=== PATIENT | female | born 1995 | race Two or more races ===

== ENCOUNTER 2018-10-24 20:41 | Emergency (ER) | payer OTHER ==
--- NOTE | 2018-10-24 21:15 | ER Report ---
History and Physical Time Seen By MD: 21:15 Hx. of Stated Complaint: Pt. states she has had a fever for 2 days, but has not taken her temperature. Temp 99.5 in triage. Pt. reports fatigue, lower back pain, headache. Diagnosed last week with UTI, given Bactrim. Pt. still has burning sensation with urination. HPI/ROS CHIEF COMPLAINT: back/flank pain and dysuria HISTORY OF PRESENT ILLNESS: This is a 22 year old female. She has had ongoing problems with dysuria and back/flank pain. She was treated for a urinary tract infection a week ago, but symptoms have nor resolved. Took Bactrim. Having subjective fevers at home. Taking Ibuprofen. Having chills as well. No diarrhea. No nausea or vomiting, but poor appetite. Allergies: Coded Allergies: No Known Drug Allergies (Unverified , 10/24/18) Home Meds Active Scripts Phenazopyridine Hcl (PHENAZOPYRIDINE HCL) 200 Mg Tablet, 200 MG PO TID PRN for PAIN, #10 TAB 0 Refills Prov:CHIQUITA GONZALEZ MD 10/25/18 Ondansetron 4 Mg Odt (ONDANSETRON 4 MG ODT) 4 Mg Tab.rapdis, 4 MG PO Q6H PRN for NAUSEA/VOMITING, #20 TAB 0 Refills Prov:CHIQUITA GONZALEZ MD 10/25/18 Hydrocodone Bit/Acetaminophen (HYDROCODON-ACETAMINOPHEN 5-325) 1 Each Tablet, 1 EACH PO Q4H PRN for PAIN, #8 TAB 0 Refills Prov:CHIQUITA GONZALEZ MD 10/25/18 Levofloxacin 500 Mg Tab (LEVOFLOXACIN 500 MG TAB) 500 Mg Tablet, 500 MG PO QDAY for 7 Days, #7 TAB 0 Refills Prov:CHIQUITA GONZALEZ MD 10/25/18 Reviewed Nurses Notes: Yes Constitutional Vital Sign - Last 24 Hours 10/24/18 10/24/18 10/24/18 10/24/18 21:01 21:01 21:11 21:16 Temp 99.5 Pulse 101 ??? Resp 16 B/P (MAP) 123/82 (96) 123/82 Pulse Ox 95 95 O2 Delivery Room Air 10/24/18 10/24/18 10/24/18 10/24/18 21:30 21:31 21:46 21:49 Temp 100.3 Pulse 95 99 B/P (MAP) ???/??? (1665) Pulse Ox 97 92 10/24/18 10/24/18 10/24/18 10/24/18 22:01 22:16 22:30 22:31 Pulse 91 ? B/P (MAP) ???/??? (1665) Pulse Ox 94 100 10/24/18 10/24/18 10/24/18 10/24/18 22:46 23:00 23:05 23:06 Pulse ? B/P (MAP) ???/??? (1665) 117/75 (89) 10/24/18 10/24/18 10/24/18 10/24/18 23:20 23:30 23:35 23:50 Pulse 102 93 ??? B/P (MAP) 104/73 (83) Pulse Ox 87 93 10/25/18 10/25/18 00:00 00:05 Pulse 94 B/P (MAP) 116/80 (92) Pulse Ox 97 Physical Exam General Appearance: The patient is alert. No acute distress. Eyes: Pupils are equal, round. Reactive to light. No pallor, injection or icte keri. Extraocular movements are intact. Eyes do hurt with extremes of movement. ENT: Mucous membranes are moist. Normal oral mucosa. Posterior oropharynx is normal. Normal tympanic membranes and canals. Neck: Supple and non tender. Has cervical lymphadenopathy. Respiratory: Lungs are clear to auscultation. Cardiovascular: Regular rate and rhythm. No murmurs, gallops or rubs. Normal capillary refill. Gastrointestinal: Abdomen is soft and non tender. Nondistended. Normal active bowel sounds. Neurological: Alert and oriented x3. No focal neurologic deficits Skin: Warm and dry. Musculoskeletal: Extremities are nontender. No tenderness in palpation of the cervical, thoracic and lumbar spine, but pain in the flank and low back. DIFFERENTIAL DIAGNOSIS: After history and physical exam, differential diagnosis was considered for patient with dysuria and some flank and low back pain. Concerning for ongoing urinary tract infection with treatment failure or possibly kidney stones. She does have a little bit of upper respiration symptoms of fever could also be due to upper respiratory viral syndrome Medical Decision Making Data Points Result Diagram: 10/24/18 1390 10/24/182125 Laboratory Hematology Test 10/24/18 21:18 10/24/18 21:26 10/24/18 21:37 10/24/18 22:47 Urine Color Yellow Urine Clarity Clear Urine pH 5.0 pH (4.8-9.5) Urine Specific [place] 1.027 Urine Protein 30 mg/dL (NEGATIVE) Urine Glucose (UA) Negative mg/dL (NEGATIVE) Urine Ketones 80 mg/dL (NEGATIVE) Urine Blood Moderate (NEGATIVE) Urine Nitrite Negative (NEGATIVE) Urine Bilirubin Negative (NEGATIVE) Urine Urobilinogen Negative mg/dL (0.2-1.9) Urine Leukocyte Esterase Negative (NEGATIVE) Urine RBC 6 /HPF (0-2/HPF) Urine WBC 2 /HPF (0-5/HPF) Urine Squamous Epithelial Cells Moderate /LPF (</=FEW) Urine Bacteria Negative /HPF (NONE-FEW) Urine Mucus Few /HPF (NONE-FEW) Sodium Level 134 mmol/L (137-145) Potassium Level 3.7 mmol/L (3.5-5.0) Chloride Level 106 mmol/L (98-107) Carbon Dioxide Level 19 mmol/L (22-31) Blood Urea Nitrogen 10 mg/dl (7-18) Creatinine 0.80 mg/dl (0.52-1.04) Glomerular Filtration Rate Calc > 60.0 Random Glucose 93 mg/dl (75-110) Calcium Level 9.2 mg/dl (8.4-10.2) Total Bilirubin 0.5 mg/dl (0.2-1.3) Aspartate Amino Transf (AST/SGOT) 35 U/L (0-35) Alanine Aminotransferase (ALT/SGPT) 24 U/L (0-56) Alkaline Phosphatase 48 U/L (0-126) Total Protein 8.9 g/dl (6.3-8.2) Albumin 5.0 g/dl (3.5-5.0) Influenza Virus Type A (PCR) Negative (NEGATIVE) Influenza Virus Type B (PCR) Negative (NEGATIVE) Red Blood Count 4.95 M/uL (4.17-5.56) Mean Corpuscular Volume 82.0 fL (80.0-96.0) Mean Corpuscular Hemoglobin 27.1 pg (26.0-33.0) Mean Corpuscular Hemoglobin Concent 33.0 g/dL (32.0-36.0) Red Cell Distribution Width 13.9 % (11.5-14.5) Mean Platelet Volume 8.5 fL (7.2-11.1) Neutrophils (%) (Auto) 58.5 % (39.4-72.5) Lymphocytes (%) (Auto) 24.3 % (17.6-49.6) Monocytes (%) (Auto) 11.7 % (4.1-12.4) Eosinophils (%) (Auto) 5.2 % (0.4-6.7) Basophils (%) (Auto) 0.3 % (0.3-1.4) Nucleated RBC Relative Count (auto) 0.1 /100WBC Neutrophils # (Auto) 1.0 K/uL (2.0-7.4) Lymphocytes # (Auto) 0.4 K/uL (1.3-3.6) Monocytes # (Auto) 0.2 K/uL (0.3-1.0) Eosinophils # (Auto) 0.1 K/uL (0.0-0.5) Basophils # (Auto) 0.0 K/uL (0.0-0.1) Nucleated RBC Absolute Count (auto) 0.00 K/uL Peripheral Blood Smear Yes Y/N Chemistry Test 10/24/18 21:18 10/24/18 21:26 10/24/18 21:37 10/24/18 22:47 Urine Color Yellow Urine Clarity Clear Urine pH 5.0 pH (4.8-9.5) Urine Specific [place] 1.027 Urine Protein 30 mg/dL (NEGATIVE) Urine Glucose (UA) Negative mg/dL (NEGATIVE) Urine Ketones 80 mg/dL (NEGATIVE) Urine Blood Moderate (NEGATIVE) Urine Nitrite Negative (NEGATIVE) Urine Bilirubin Negative (NEGATIVE) Urine Urobilinogen Negative mg/dL (0.2-1.9) Urine Leukocyte Esterase Negative (NEGATIVE) Urine RBC 6 /HPF (0-2/HPF) Urine WBC 2 /HPF (0-5/HPF) Urine Squamous Epithelial Cells Moderate /LPF (</=FEW) Urine Bacteria Negative /HPF (NONE-FEW) Urine Mucus Few /HPF (NONE-FEW) Glomerular Filtration Rate Calc > 60.0 Calcium Level 9.2 mg/dl (8.4-10.2) Total Bilirubin 0.5 mg/dl (0.2-1.3) Aspartate Amino Transf (AST/SGOT) 35 U/L (0-35) Alanine Aminotransferase (ALT/SGPT) 24 U/L (0-56) Alkaline Phosphatase 48 U/L (0-126) Total Protein 8.9 g/dl (6.3-8.2) Albumin 5.0 g/dl (3.5-5.0) Influenza Virus Type A (PCR) Negative (NEGATIVE) Influenza Virus Type B (PCR) Negative (NEGATIVE) White Blood Count 1.7 k/uL (4.5-11.0) Red Blood Count 4.95 M/uL (4.17-5.56) Hemoglobin 13.4 g/dL (12.0-16.0) Hematocrit 40.6 % (34.0-47.0) Mean Corpuscular Volume 82.0 fL (80.0-96.0) Mean Corpuscular Hemoglobin 27.1 pg (26.0-33.0) Mean Corpuscular Hemoglobin Concent 33.0 g/dL (32.0-36.0) Red Cell Distribution Width 13.9 % (11.5-14.5) Platelet Count 157 K/uL (150-450) Mean Platelet Volume 8.5 fL (7.2-11.1) Neutrophils (%) (Auto) 58.5 % (39.4-72.5) Lymphocytes (%) (Auto) 24.3 % (17.6-49.6) Monocytes (%) (Auto) 11.7 % (4.1-12.4) Eosinophils (%) (Auto) 5.2 % (0.4-6.7) Basophils (%) (Auto) 0.3 % (0.3-1.4) Nucleated RBC Relative Count (auto) 0.1 /100WBC Neutrophils # (Auto) 1.0 K/uL (2.0-7.4) Lymphocytes # (Auto) 0.4 K/uL (1.3-3.6) Monocytes # (Auto) 0.2 K/uL (0.3-1.0) Eosinophils # (Auto) 0.1 K/uL (0.0-0.5) Basophils # (Auto) 0.0 K/uL (0.0-0.1) Nucleated RBC Absolute Count (auto) 0.00 K/uL Peripheral Blood Smear Yes Y/N Urinalysis Test 10/24/18 21:18 Urine Color Yellow Urine Clarity Clear Urine pH 5.0 pH (4.8-9.5) Urine Specific [place] 1.027 Urine Protein 30 mg/dL (NEGATIVE) Urine Glucose (UA) Negative mg/dL (NEGATIVE) Urine Ketones 80 mg/dL (NEGATIVE) Urine Blood Moderate (NEGATIVE) Urine Nitrite Negative (NEGATIVE) Urine Bilirubin Negative (NEGATIVE) Urine Urobilinogen Negative mg/dL (0.2-1.9) Urine Leukocyte Esterase Negative (NEGATIVE) Urine RBC 6 /HPF (0-2/HPF) Urine WBC 2 /HPF (0-5/HPF) Urine Squamous Epithelial Cells Moderate /LPF (</=FEW) Urine Bacteria Negative /HPF (NONE-FEW) Urine Mucus Few /HPF (NONE-FEW) EKG/Imaging Imaging CT of the abdomen and pelvis without contrast: Indication: Flank pain and dysuria. Technique: Helical CT was performed through the abdomen and pelvis without contrast. Multiplanar reconstructions are reviewed. One of the following dose optimization techniques was utilized in the performance of this exam: Automated exposure control; adjustment of the mA and/or kV according to the patient's size; or use of an iterative reconstruction technique. Specific details can be referenced in the facility's radiology CT exam operational policy. Comparison: None available. Lower lung [place]: No parenchymal or pleural abnormality is identified. Liver: A few tiny cysts are incidentally noted. Otherwise normal in size, shape, and density. Gallbladder/biliary tree: The gallbladder is normal in size and homogeneous in density. The bile ducts are not dilated. Pancreas: Normal in size, shape, and density. Spleen: Normal in size, shape, and density. Adrenal glands: Within normal limits. Kidneys/urinary bladder: There are nonobstructing calculi at the lower pole of the right kidney, measuring up to 4 mm in size. The kidneys are otherwise normal in size, shape, and density. There are no signs of ureteral calculus or obstruction. Multiple calcified phleboliths are present in the pelvis. The bladder appears homogeneous and unremarkable. Intestinal structures: Unremarkable, as visualized. There are no signs of obstruction or focal inflammatory changes. The appendix appears normal. Pelvis: The uterus and adnexal structures are unremarkable, as visualized. There are no signs of fluid or inflammation. Aorta and vascular structures: Within normal limits. Ascites or fluid collections: None seen. Skeletal structures: Intact and unremarkable. Impression: There are nonobstructing calculi in the right kidney, measuring up to 4 mm in size. There are no signs of ureteral calculus or obstruction. Report Dictated By: Joseph Gaines MD at 10/24/2018 11:21 PM ED Course/Re-evaluation ED Course Influenza negative. Unable to get an IV placed but labs were obtained. She does have a low white count but her absolute neutrophil count is still okay. She does have signs of urinary tract infection. CT scan noncontrast shows no obstructing stone. She does have some silent stones in the right kidney. Urinalysis shows signs of infection. Culture ordered. Starting Levaquin. Also provided some Pyridium as well as some Lortab for pain. Also some Zofran for nausea. Decision to Disposition Date: Oct 25, 2018 Decision to Disposition Time: 00:02 Depart Departure Latest Vital Signs Vital Signs Date Time Temp Pulse Resp B/P (MAP) Pulse Ox O2 Delivery O2 Flow Rate FiO2 10/25/18 00:05 94 97 10/25/18 00:00 116/80 (92) 10/24/18 21:49 100.3 10/24/18 21:01 16 Room Air Impression: Primary Impression: Urinary tract infection Condition: Improved Disposition: HOME OR SELF-CARE New Scripts Phenazopyridine Hcl (PHENAZOPYRIDINE HCL) 200 Mg Tablet 200 MG PO TID PRN for PAIN, #10 TAB 0 Refills Prov: CHIQUITA GONZALEZ MD 10/25/18 Ondansetron 4 Mg Odt (ONDANSETRON 4 MG ODT) 4 Mg Tab.rapdis 4 MG PO Q6H PRN for NAUSEA/VOMITING, #20 TAB 0 Refills Prov: CHIQUITA GONZALEZ MD 10/25/18 Hydrocodone Bit/Acetaminophen (HYDROCODON-ACETAMINOPHEN 5-325) 1 Each Tablet 1 EACH PO Q4H PRN for PAIN, #8 TAB 0 Refills Prov: CHIQIUTA GONZALEZ MD 10/25/18 Levofloxacin 500 Mg Tab (LEVOFLOXACIN 500 MG TAB) 500 Mg Tablet 500 MG PO QDAY for 7 Days, #7 TAB 0 Refills Prov: CHIQUITA GONZALEZ MD 2/6/19 Patient Instructions: Urinary Tract Infection in Women (ED) Additional Instructions: You have a urinary tract infection. Take the antibiotic Levaquin 500 milligrams once a day for 7 days. For burning with urination, use Pyridium 200 mg every 8 hours as needed. For pain use Lortab 5/325, one every 4 hours as needed for pain. For nausea use Zofran 4 mg, one every 6 hours as needed for nausea and vomiting. Follow-up with primary care in the next week for reevaluation and rechecking your complete blood count. Problem Qualifiers Primary Impression: Urinary tract infection Urinary tract infection type: acute cystitis Hematuria presence: without hematuria Qualified Codes: N30.00 - Acute cystitis without hematuria CHIQUITA GONZALEZ MD Oct 24, 2018 21:15
[2018-10-24 23:00] LABS: PLATELET COUNT, AUTOMATED 157 K/uL (150-450)
--- NOTE | 2018-10-24 23:38 | RADIOLOGY IMAGING REPORT ---
FACILITY: [facility] PATIENT NAME: Jerome Sparrow : 1995 MR: [id number] V: [id number] EXAM DATE: ORDERING PHYSICIAN: CHIQUITA GONZALEZ [place]CHN[place] [facility] [place] : 1995 Visit/Account:[id number] Date of Sevice: 10/24/2018 CT of the abdomen and pelvis without contrast: Indication: Flank pain and dysuria. Technique: Helical CT was performed through the abdomen and pelvis without contrast. Multiplanar rec onstructions are reviewed. One of the following dose optimization techniques was utilized in the performance of this exam: Autom ated exposure control; adjustment of the mA and/or kV according to the patient's size; or use of an i terative reconstruction technique. Specific details can be referenced in the facility's radiology CT exam operational policy. Comparison: None available. Lower lung [place]: No parenchymal or pleural abnormality is identified. Liver: A few tiny cysts are incidentally noted. Otherwise normal in size, shape, and density. Gallbladder/biliary tree: The gallbladder is normal in size and homogeneous in density. The bile duct s are not dilated. Pancreas: Normal in size, shape, and density. Spleen: Normal in size, shape, and density. Adrenal glands: Within normal limits. Kidneys/urinary bladder: There are nonobstructing calculi at the lower pole of the right kidney, jace uring up to 4 mm in size. The kidneys are otherwise normal in size, shape, and density. There are no signs of ureteral calculus or obstruction. Multiple calcified phleboliths are present in the pelvis. The bladder appears homogeneous and unremarkable. Intestinal structures: Unremarkable, as visualized. There are no signs of obstruction or focal inflam matory changes. The appendix appears normal. Pelvis: The uterus and adnexal structures are unremarkable, as visualized. There are no signs of flui d or inflammation. Aorta and vascular structures: Within normal limits. Ascites or fluid collections: None seen. Skeletal structures: Intact and unremarkable. Impression: There are nonobstructing calculi in the right kidney, measuring up to 4 mm in size. There are no signs of ureteral calculus or obstruction. Report Dictated By: Joseph Gaines MD at 10/24/2018 11:21 PM Report E-Signed By: Joseph Gaines MD at 10/24/2018 11:34 PM WSN:[id number]
[2018-10-25] VITALS: BP 116/80
[2018-10-25] MEDS ORDERED: LOR5/325 PO (00:04)
[2018-10-25] MEDS ORDERED: LEVO500T83 PO (00:04)
[2018-10-25] MEDS ORDERED: ONDA4TAB9 PO (00:04)
[2018-10-25] MEDS ORDERED: PHEN200T32 PO (00:04)
[2018-10-25] MEDS ORDERED: ACET/HYDROC 5/325MG TH ER ONLY 2 TAB/BOTTLE PO ONE (00:05)
[2018-10-25] MEDS ORDERED: LEVOFLOXACIN 500 MG TAB PO ONE (00:05)
[2018-10-25] MEDS ORDERED: PHENAZOPYRIDINE 200 MG TAB TH 2 TAB/BOTTLE PO ONE (00:05)
[2018-10-25] MEDS ORDERED: ONDANSETRON 4 MG ODT TH SL ONE (00:05)
== END 2018-10-25 00:37 | disposition home or self-care (01) ==
LOC: ER 21:13
DX: N30.00 Acute cystitis without hematuria (principal)
CPT/HCPCS: 36415; 74176; 81001; 85025; 87088; 87502; 99284; S0119; 82040; 82247; 82310; 82374; 82435; 82565; 82947; 84075; 84132; 84155; 84295; 84450; 84460; 84520

== ENCOUNTER → 2018-10-31 | Outpatient (CLI) | payer OTHER ==
[~2018-10-31] MED LIST: LEVO500T83 PO; LOR5/325 PO; ONDA4TAB9 PO; PHEN200T32 PO
--- NOTE | 2018-10-31 12:32 | RADIOLOGY IMAGING REPORT ---
FACILITY: [facility] - [place] PATIENT NAME: Jerome Sparrow : 1995 MR: [id number] V: [id number] EXAM DATE: ORDERING PHYSICIAN: EKATERINA DE SOUZA TECHNOLOGIST: Location: [facility] Patient: Jerome Sparrow : 1995 Visit/Account:[id number] Date of Sevice: 10/31/2018 KUB SINGLE VIEW ABDOMEN Indication: nephrolithiasis Comparison: CT of the abdomen and pelvis 10/24/2018 FINDINGS: There is a 4 mm calcification projecting of the lower pole right kidney, unchanged. Left r enal silhouette is normal. Phleboliths are seen in the pelvis. IMPRESSION: 4 mCi calculus lower pole right kidney, unchanged from 10/24/2018. Report Dictated By: Guilherme Sierra at 10/31/2018 12:26 PM Report E-Signed By: Guilherme Sierra at 10/31/2018 12:28 PM WSN:[id number]
== END ==
LOC: RAD 10:59
PROVIDERS: ATTEND Urology
DX: N20.0 Calculus of kidney (principal)
CPT/HCPCS: 74018

== ENCOUNTER → 2018-10-31 | Outpatient (CLI) | payer OTHER | LOC: LAB 10:37 | PROVIDERS: ATTEND Urology | DX: N39.0 Urinary tract infection, site not specified (principal); R82.79 Other abnormal findings on microbiological examination of urine | CPT/HCPCS: 81001; 87088 ==

== ENCOUNTER → 2018-11-02 | Outpatient (CLI) | payer OTHER ==
[~2018-11-02] MED LIST changes: +CEPH500T7 PO; +HYDR-653 PO; +ONDA4TAB97 PO
== END ==
LOC: LAB 11:15
PROVIDERS: ATTEND Urology
DX: Z02.9 Encounter for administrative examinations, unspecified (principal)

== ENCOUNTER 2018-11-03 05:22 | Emergency (ER) | payer OTHER ==
[~2018-11-03 05:22] MED LIST changes: -CEPH500T7 PO; -HYDR-653 PO; -ONDA4TAB97 PO
--- NOTE | 2018-11-03 05:28 | ER Report ---
History and Physical Time Seen By MD: 05:28 (FREDDIE DRAKE MD) HPI/ROS CHIEF COMPLAINT: weakness, fever HISTORY OF PRESENT ILLNESS: Patient was seen on October 24 and diagnosed with urinary tract infection/early pyelonephritis. Patient was placed on Levaquin for 7 days which she completed course. Patient was followed up by on the and 01 of November for evaluation of urinary tract impaction. She ended up having a CT scan during her visit in the emergency department which did show a stone in the kidney but no obstructive ureterolithiasis. Patient's note from November 02 states that she still had nitrites in her urine along with hematuria but states that she was "feeling better". Patient states that her symptoms began approximately 2 hours ago when she started to feel generally weak. She reports a mild cough. She also reports dizziness. She denies chest pain or difficulty breathing. She denies abdominal pain, nausea, vomiting or diarrhea. She states that she just feels too weak to talk. Also she reports that she is too weak to ambulate. Patient denies or breast-feeding. States that she receives Depo-Provera injection for control. REVIEW OF SYSTEMS: Constitutional: No fever, no chills. Generalized weakness Eyes: No discharge. ENT: No sore throat. Cardiovascular: No chest pain, no palpitations. Respiratory: Occasional dry cough otherwise no shortness of breath Gastrointestinal: No abdominal pain, no vomiting. Genitourinary: No hematuria. Denies dysuria Musculoskeletal: No back pain. Denies flank pain Skin: No rashes. Neurological: No headache. (FREDDIE DRAKE MD) Allergies: Coded Allergies: No Known Drug Allergies (Unverified , 11/03/18) Home Meds Active Scripts Hydrocodone Bit/Acetaminophen (NORCO 5-325 TABLET) 1 Each Tablet, 1 EACH PO Q6H for PAIN, #10 TAB Prov:FREDDIE VALDEZ MD 11/03/18 Ondansetron Hcl (ZOFRAN) 4 Mg Tablet, 4 MG PO Q8H for Nausea, #15 TAB 0 Refills Prov:FREDDIE DRAKE MD 11/03/18 Cephalexin 500 Mg Tab (KEFLEX 500 MG TAB) 500 Mg Tablet, 500 MG PO Q6H, #28 TAB 0 Refills TAKE ONE TABLET BY MOUTH EVERY SIX HOURS Prov:FREDDIE DRAKE MD 11/03/18 Phenazopyridine Hcl (PHENAZOPYRIDINE HCL) 200 Mg Tablet, 200 MG PO TID PRN for PAIN, #10 TAB 0 Refills Prov:CHIQUITA GONZALEZ MD 10/25/18 Ondansetron 4 Mg Odt (ONDANSETRON 4 MG ODT) 4 Mg Tab.rapdis, 4 MG PO Q6H PRN for NAUSEA/VOMITING, #20 TAB 0 Refills Prov:CHIQUITA GONZALEZ MD 10/25/18 Hydrocodone Bit/Acetaminophen (HYDROCODON-ACETAMINOPHEN 5-325) 1 Each Tablet, 1 EACH PO Q4H PRN for PAIN, #8 TAB 0 Refills Prov:CHIQUITA GONZALEZ MD 10/25/18 Levofloxacin 500 Mg Tab (LEVOFLOXACIN 500 MG TAB) 500 Mg Tablet, 500 MG PO QDAY for 7 Days, #7 TAB 0 Refills Prov:CHIQUITA GONZALEZ MD 10/25/18 Past Medical/Surgical History Patient denies any significant past medical history (FREDDIE DRAKE MD) Smoking Status: Never Smoker Exposure to Second Hand Smoke?: No (FREDDIE DRAKE MD) Constitutional Vital Sign - Last 24 Hours 11/03/18 11/03/18 11/03/18 11/03/18 05:31 05:33 05:37 07:00 Temp 99.1 Pulse 100 99 116 Resp 15 B/P (MAP) 105/67 (80) 105/67 Pulse Ox 93 95 95 O2 Delivery Room Air 11/03/18 11/03/18 08:00 08:03 Temp 98.5 Pulse 98 Pulse Ox 99 Intake and Output 11/02/18 11/02/18 11/03/18 15:00 23:00 07:00 Intake Total 1000 ml Balance 1000 ml (FREDDIE VALDEZ MD) Physical Exam General Appearance: The patient is alert, has no immediate need for airway protection and no current signs of toxicity. [ ] Eyes: Pupils equal and round; bilateral conjunctival injection Respiratory: Chest is non tender, lungs are clear to auscultation. Cardiac: regular rate and rhythm [ ] Gastrointestinal: Abdomen is soft and non tender, no masses, bowel sounds normal. Musculoskeletal: Neck: Neck is supple and non tender. Extremities have full range of motion and are non tender. Skin: No rashes or lesions. (FREDDIE DRAKE MD) Medical Decision Making Data Points Result Diagram: 11/03/18 0613 11/03/18 0613 Laboratory Hematology Test 11/03/18 05:47 11/03/18 05:53 11/03/18 06:13 Urine Color Yellow Urine Clarity Clear Urine pH 6.0 pH (4.8-9.5) Urine Specific Bryson 1.012 Urine Protein Negative mg/dL (NEGATIVE) Urine Glucose (UA) Negative mg/dL (NEGATIVE) Urine Ketones Negative mg/dL (NEGATIVE) Urine Blood Small (NEGATIVE) Urine Nitrite Negative (NEGATIVE) Urine Bilirubin Negative (NEGATIVE) Urine Urobilinogen Negative mg/dL (0.2-1.9) Urine Leukocyte Esterase Moderate (NEGATIVE) Urine RBC 2 /HPF (0-2/HPF) Urine WBC 10 /HPF (0-5/HPF) Urine Squamous Epithelial Cells Many /LPF (</=FEW) Urine Bacteria Few /HPF (NONE-FEW) Urine Mucus Few /HPF (NONE-FEW) Influenza Virus Type A (PCR) Negative (NEGATIVE) Influenza Virus Type B (PCR) Negative (NEGATIVE) Red Blood Count 4.22 M/uL (4.17-5.56) Mean Corpuscular Volume 82.6 fL (80.0-96.0) Mean Corpuscular Hemoglobin 27.1 pg (26.0-33.0) Mean Corpuscular Hemoglobin Concent 32.8 g/dL (32.0-36.0) Red Cell Distribution Width 15.6 % (11.5-14.5) Mean Platelet Volume 7.8 fL (7.2-11.1) Neutrophils (%) (Auto) 92.8 % (39.4-72.5) Lymphocytes (%) (Auto) 5.8 % (17.6-49.6) Monocytes (%) (Auto) 1.1 % (4.1-12.4) Eosinophils (%) (Auto) 0.2 % (0.4-6.7) Basophils (%) (Auto) 0.1 % (0.3-1.4) Nucleated RBC Relative Count (auto) 0.1 /100WBC Neutrophils # (Auto) 5.2 K/uL (2.0-7.4) Lymphocytes # (Auto) 0.3 K/uL (1.3-3.6) Monocytes # (Auto) 0.1 K/uL (0.3-1.0) Eosinophils # (Auto) 0.0 K/uL (0.0-0.5) Basophils # (Auto) 0.0 K/uL (0.0-0.1) Nucleated RBC Absolute Count (auto) 0.00 K/uL Sodium Level 135 mmol/L (137-145) Potassium Level 3.0 mmol/L (3.5-5.0) Chloride Level 105 mmol/L (98-107) Carbon Dioxide Level 21 mmol/L (22-31) Blood Urea Nitrogen 9 mg/dl (7-18) Creatinine 0.70 mg/dl (0.52-1.04) Glomerular Filtration Rate Calc > 60.0 Random Glucose 114 mg/dl (75-110) Calcium Level 8.7 mg/dl (8.4-10.2) Total Bilirubin 0.6 mg/dl (0.2-1.3) Aspartate Amino Transf (AST/SGOT) 20 U/L (0-35) Alanine Aminotransferase (ALT/SGPT) 35 U/L (0-56) Alkaline Phosphatase 58 U/L (0-126) Total Protein 7.0 g/dl (6.3-8.2) Albumin 4.2 g/dl (3.5-5.0) Human Chorionic Gonadotropin, Qual Negative (NEGATIVE) Monoscreen Negative (NEGATIVE) Chemistry Test 11/03/18 05:47 11/03/18 05:53 11/03/18 06:13 Urine Color Yellow Urine Clarity Clear Urine pH 6.0 pH (4.8-9.5) Urine Specific Bryson 1.012 Urine Protein Negative mg/dL (NEGATIVE) Urine Glucose (UA) Negative mg/dL (NEGATIVE) Urine Ketones Negative mg/dL (NEGATIVE) Urine Blood Small (NEGATIVE) Urine Nitrite Negative (NEGATIVE) Urine Bilirubin Negative (NEGATIVE) Urine Urobilinogen Negative mg/dL (0.2-1.9) Urine Leukocyte Esterase Moderate (NEGATIVE) Urine RBC 2 /HPF (0-2/HPF) Urine WBC 10 /HPF (0-5/HPF) Urine Squamous Epithelial Cells Many /LPF (</=FEW) Urine Bacteria Few /HPF (NONE-FEW) Urine Mucus Few /HPF (NONE-FEW) Influenza Virus Type A (PCR) Negative (NEGATIVE) Influenza Virus Type B (PCR) Negative (NEGATIVE) White Blood Count 5.6 k/uL (4.5-11.0) Red Blood Count 4.22 M/uL (4.17-5.56) Hemoglobin 11.5 g/dL (12.0-16.0) Hematocrit 34.9 % (34.0-47.0) Mean Corpuscular Volume 82.6 fL (80.0-96.0) Mean Corpuscular Hemoglobin 27.1 pg (26.0-33.0) Mean Corpuscular Hemoglobin Concent 32.8 g/dL (32.0-36.0) Red Cell Distribution Width 15.6 % (11.5-14.5) Platelet Count 284 K/uL (150-450) Mean Platelet Volume 7.8 fL (7.2-11.1) Neutrophils (%) (Auto) 92.8 % (39.4-72.5) Lymphocytes (%) (Auto) 5.8 % (17.6-49.6) Monocytes (%) (Auto) 1.1 % (4.1-12.4) Eosinophils (%) (Auto) 0.2 % (0.4-6.7) Basophils (%) (Auto) 0.1 % (0.3-1.4) Nucleated RBC Relative Count (auto) 0.1 /100WBC Neutrophils # (Auto) 5.2 K/uL (2.0-7.4) Lymphocytes # (Auto) 0.3 K/uL (1.3-3.6) Monocytes # (Auto) 0.1 K/uL (0.3-1.0) Eosinophils # (Auto) 0.0 K/uL (0.0-0.5) Basophils # (Auto) 0.0 K/uL (0.0-0.1) Nucleated RBC Absolute Count (auto) 0.00 K/uL Glomerular Filtration Rate Calc > 60.0 Calcium Level 8.7 mg/dl (8.4-10.2) Total Bilirubin 0.6 mg/dl (0.2-1.3) Aspartate Amino Transf (AST/SGOT) 20 U/L (0-35) Alanine Aminotransferase (ALT/SGPT) 35 U/L (0-56) Alkaline Phosphatase 58 U/L (0-126) Total Protein 7.0 g/dl (6.3-8.2) Albumin 4.2 g/dl (3.5-5.0) Human Chorionic Gonadotropin, Qual Negative (NEGATIVE) Monoscreen Negative (NEGATIVE) Urinalysis Test 11/03/18 05:47 Urine Color Yellow Urine Clarity Clear Urine pH 6.0 pH (4.8-9.5) Urine Specific Bryson 1.012 Urine Protein Negative mg/dL (NEGATIVE) Urine Glucose (UA) Negative mg/dL (NEGATIVE) Urine Ketones Negative mg/dL (NEGATIVE) Urine Blood Small (NEGATIVE) Urine Nitrite Negative (NEGATIVE) Urine Bilirubin Negative (NEGATIVE) Urine Urobilinogen Negative mg/dL (0.2-1.9) Urine Leukocyte Esterase Moderate (NEGATIVE) Urine RBC 2 /HPF (0-2/HPF) Urine WBC 10 /HPF (0-5/HPF) Urine Squamous Epithelial Cells Many /LPF (</=FEW) Urine Bacteria Few /HPF (NONE-FEW) Urine Mucus Few /HPF (NONE-FEW) (FREDDIE VALDEZ MD) EKG/Imaging EKG Interpretation EKG shows sinus rhythm with a ventricular rate of 100 bpm there is a nonspecific T-wave abnormality noted to be through 6 with T-wave flattening there is also T- wave flattening in leads 2;3 and aVF. Monitor Interpretation: Normal Sinus Rhythm (FREDDIE DRAKE MD) ED Course/Re-evaluation Clinical Indication for ER IV: IV Access ED Course 11/03/2018 5:51:06 am patient with generalized weakness. Recent history of urinary tract infection will repeat urinalysis and urine culture. We'll also check influenza, EKG serum blood work including CBC CMP and test. (FREDDIE DRAKE MD) ED Course I t/[place] [id number]; awaiting IVF; I re-evaluated pt; bp is borderline but she feels improved and wishes to go home as opposed to staying for further ivf, assessment. I reviewed findings with her; she has prescriptions, close f/u and understands importance of returning immediately if not improving. Ambulates without difficulty on d/c. Decision to Disposition Date: Nov 03, 2018 Decision to Disposition Time: 07:45 (FREDDIE VALDEZ MD) Depart Departure Latest Vital Signs Vital Signs Date Time Temp Pulse Resp B/P (MAP) Pulse Ox O2 Delivery O2 Flow Rate FiO2 2/15/19 08:03 98.5 11/03/18 08:00 98 99 11/03/18 05:33 15 105/67 Room Air (FREDDIE VALDEZ MD) Impression: Primary Impression: Urinary tract infection Additional Impression: Hypokalemia Condition: Improved Disposition: HOME OR SELF-CARE Referrals: EKATERINA DE SOUZA MD New Scripts Hydrocodone Bit/Acetaminophen (NORCO 5-325 TABLET) 1 Each Tablet 1 EACH PO Q6H for PAIN, #10 TAB Prov: FREDDIE VALDEZ MD 11/03/18 Ondansetron Hcl (ZOFRAN) 4 Mg Tablet 4 MG PO Q8H for Nausea, #15 TAB 0 Refills Prov: FREDDIE DRAKE MD 11/03/18 Cephalexin 500 Mg Tab (KEFLEX 500 MG TAB) 500 Mg Tablet 500 MG PO Q6H, #28 TAB 0 Refills TAKE ONE TABLET BY MOUTH EVERY SIX HOURS Prov: FREDDIE DRAKE MD 11/03/18 Departure Forms: ER Transition Record, Medications Reconciliation, Off Work/School Form, School or Work Release?: Work Number of days to be released: 2 Patient Portal Information Patient Instructions: Urinary Tract Infection in Women (ED) Additional Instructions: Follow-up with in 7 days for repeat urinalysis to test for cure of urinary tract infection Problem Qualifiers Primary Impression: Urinary tract infection Urinary tract infection type: acute cystitis Hematuria presence: without hematuria Qualified Codes: N30.00 - Acute cystitis without hematuria FREDDIE DRAKE MD Nov 03, 2018 05:28 FREDDIE VALDEZ MD Nov 03, 2018 07:34
[2018-11-03 05:33] VITALS: BP 105/67
[2018-11-03] MEDS ORDERED: NS(*) 0.9% 1000 ML BAG 1,000 ML IV ONE (05:39)
[2018-11-03] MEDS ORDERED: ONDANSETRON 4 MG/2 ML VIAL IVP ONE (05:40)
[2018-11-03 06:22] LABS: PLATELET COUNT, AUTOMATED 284 K/uL (150-450)
--- NOTE | 2018-11-03 06:31 | EKG ---
FACILITY: [facility] [place] PATIENT NAME: SHYAM ANGUIANO : [id number] MR: [id number] V: [id number] EXAM DATE: ORDERING PHYSICIAN: FREDDIE DRAKE TECHNOLOGIST: SHERYL Aguero Reason : WEAKNESS Blood Pressure : / mmHG Vent. Rate : 100 BPM Atrial Rate : 100 BPM P-R Int : 112 ms QRS Dur : 082 ms QT Int : 332 ms P-R-T Axes : 068 073 024 degrees QTc Int : 428 ms Normal sinus rhythm Nonspecific T wave abnormality Abnormal ECG No previous ECGs available Confirmed by Babar Bryson ([id number]) on 11/03/2018 6:36:30 AM Referred By: Confirmed By:Babar Campbell
[2018-11-03] MEDS ORDERED: POTASSIUM CHL 20 MEQ TABCR PO SCH (06:35)
[2018-11-03] MEDS ORDERED: cefTRIAXone 1 GM VIAL IVP ONE (06:35)
[2018-11-03] MEDS ORDERED: ONDA4TAB97 PO (06:40)
[2018-11-03] MEDS ORDERED: CEPH500T7 PO (06:40)
--- NOTE | 2018-11-03 06:50 | RADIOLOGY IMAGING REPORT ---
FACILITY: [facility] PATIENT NAME: Jerome Sparrow : 1995 MR: [id number] V: [id number] EXAM DATE: ORDERING PHYSICIAN: FREDDIE DRAKE TECHNOLOGIST: Location: [facility] [place] Patient: Jerome Sparrow : 1995 Visit/Account:[id number] Date of Sevice: 11/03/2018 CHEST PA LAT HISTORY: Chest pain and cough. COMPARISON: None. TECHNIQUE: PA and lateral views of the chest. FINDINGS: Pulmonary/pleura: Lungs are clear. There is no pneumothorax or pleural effusion. Cardiomediastinal: Cardiac and mediastinal silhouettes are within normal limits. Bones/soft tissues: No acute osseous abnormality. The visible abdomen is normal. IMPRESSION: 1. No acute cardiopulmonary process. Report Dictated By: Mary Beltran at 11/03/2018 6:46 AM Report E-Signed By: Mary Beltran at 11/03/2018 6:46 AM WSN:[id number]
[2018-11-03] MEDS ORDERED: HYDR-653 PO (07:34)
[2018-11-03] MEDS ORDERED: IBUPROFEN 600 MG TAB PO ONE (07:35)
== END 2018-11-03 08:15 | disposition home or self-care (01) ==
LOC: ER 05:31
DX: N30.00 Acute cystitis without hematuria (principal); E87.6 Hypokalemia
CPT/HCPCS: 71046; 81001; 84703; 85025; 86308; 87088; 87502; 93005; 96361; 96374; 96375; 99284; J0696; J2405; J7030; 82040; 82247; 82310; 82374; 82435; 82565; 82947; 84075; 84132; 84155; 84295; 84450; 84460; 84520

== ENCOUNTER → 2018-11-17 | Outpatient (CLI) | payer OTHER ==
[~2018-11-17] MED LIST changes: +CEPH500T7 PO; +HYDR-653 PO; +ONDA4TAB97 PO
== END ==
LOC: LAB 15:41
PROVIDERS: ATTEND Urology
DX: N39.0 Urinary tract infection, site not specified (principal)
CPT/HCPCS: 81001; 87088

== ENCOUNTER 2018-11-27 02:11 | Day surgery (SDC) | payer OTHER ==
[~2018-11-27] VITALS: Ht 152.4 cm; Wt 44.9 kg
[~2018-11-27 02:11] MED LIST changes: +NORMOSOL R SOLN(*) 1000 ML BAG 1,000 ML IV PRN
[2018-11-27 06:15] VITALS: BP 114/75
[2018-11-27] MEDS ORDERED: PROPOFOL EMUL(*) 10MG/ML 20 ML 20 ML ONE (06:36)
[2018-11-27] MEDS ORDERED: DEXAMETHASONE SOD 4 MG/ML VIAL ONE (06:36)
[2018-11-27] MEDS ORDERED: LIDOCAINE MPF 1% 5 ML VIAL ONE (06:36)
[2018-11-27] MEDS ORDERED: ONDANSETRON 4 MG/2 ML VIAL ONE (06:36)
[2018-11-27] MEDS ORDERED: fentaNYL CITR 100 MCG/2 ML AMP ONE (06:38)
[2018-11-27] MEDS ORDERED: FAMOTIDINE 20 MG TAB PO ONE (07:25)
[2018-11-27] MEDS ORDERED: MIDAZOLAM 2 MG/2 ML VIAL IVP PRN (07:25)
[2018-11-27] MEDS ORDERED: LIDOCAINE/SOD BICARB 8.4% SYR ID ONE (07:25)
[2018-11-27] MEDS ORDERED: NORMOSOL R SOLN(*) 1000 ML BAG 1,000 ML IV PRN (07:25)
[2018-11-27] MEDS ORDERED: LEVOFLOXACIN/D5W*500 MG/100 ML 100 ML IVPB ONE (07:25)
--- NOTE | 2018-11-27 07:59 | RADIOLOGY IMAGING REPORT ---
FACILITY: [facility] PATIENT NAME: Jerome Sparrow : 1995 MR: [id number] V: [id number] EXAM DATE: ORDERING PHYSICIAN: EKATERINA DE SOUZA TECHNOLOGIST: Location: [facility] Patient: Jerome Sparrow : 1995 Visit/Account:[id number] Date of Sevice: 11/26/2018 KUB SINGLE VIEW ABDOMEN INDICATION: Kidney stone. COMPARISON: 10/31/2018. FINDINGS: Single frontal view the abdomen. There is a 4 mm calcific densities seen overlying the in ferior pole collecting system of the right kidney, unchanged from the previous exam or the CT scan of the abdomen and pelvis on 10/24/2018. No other suspicious calcifications. Vascular phleboliths are aga in present in the pelvis which are unchanged. Abdominal soft tissues grossly normal without suspiciou s lucencies. Some stool seen in colon. Bowel gas pattern is nonobstructed nondilated. Lung bases are clear. No acute bony abnormality. IMPRESSION: Stable 4 mm stone in the inferior collecting system of the right kidney. No other suspici ous calcifications. Report Dictated By: Tyler Gonzalez at 11/27/2018 7:51 AM Report E-Signed By: Tyler Gonzalez at 11/27/2018 7:54 AM WSN:[id number]
[2018-11-27] MEDS ORDERED: cefTRIAXone(*) 1 GM VIAL 1 GM in NS(*) 0.9% 100 ML ADDVANT BAG 100 ML IVPB ONE (08:05)
[2018-11-27] MEDS ORDERED: KETOROLAC 30 MG/ML VIAL ONE (09:20)
--- NOTE | 2018-11-27 09:56 | Urology Discharge Summary ---
Discharge Summary Reason for Hosp/Final Diag: (1) Right nephrolithiasis Status: Resolved Departure Weight (Pounds): 99 Condition: Improved Discharge: Home Time Spent: < 30 min Discharge Instructions Home Meds No Active Prescriptions or Reported Meds Activity: As Tolerated Venous Thromboembolism Antithrombotics Is Pt On Any Antithrombotics?: No Prophylaxis Tx Contraindicated Pharmacological Contraindicati: Surgical Contraindication EKATERINA DE SOUZA MD Nov 27, 2018 09:56
[2018-11-27 10:40] VITALS: BP 105/70
[2018-11-27 11:20] VITALS: BP 104/72
[2018-11-27 11:22] VITALS: BP 110/67
--- NOTE | 2018-11-27 11:39 | NUR ---
pt brought to pa from pacu on cart in sf position. pt asks to rest for a while, to bedside call light with pt. pt refuses anything to eat or drink. vss. pt and given verbal and written discharge instructions and pt requests to get up at this time. pt reports feeling "heavy" and mildly dizzy/light headed. requests to continue to get up. offered to sit back down and lay back down and refuses. orthostatics stable. pt changes with assist from refuses help from rn. pt and deny any further questions or concerns. escorted to car side via the admitting entrance. all belongings with pt.
--- NOTE | 2018-11-27 13:25 | OPERATIVE REPORT 1 ---
EVENT DATE: November 27, 2018 SURGEON: Ziyad Cano MD ANESTHESIOLOGIST: Allen Rivers MD ANESTHESIA: General PREOPERATIVE DIAGNOSIS Right renal calculus. POSTOPERATIVE DIAGNOSIS Right renal calculus. PROCEDURE PERFORMED Right extracorporeal shock wave lithotripsy. DESCRIPTION OF PROCEDURE The patient was brought to the operating room and after the adequate of general anesthesia, she was placed in supine position on the treatment table. The stone was imaged fluoroscopically and then treated with a total of 2500 shocks at a rate of 60 shocks per minute. She tolerated the procedure well. No ectopy was noted. She was aroused from anesthesia and then transported to the PACU in stable condition [facility]
== END 2018-11-27 10:40 | disposition home or self-care (01) ==
LOC: OR 02:11
PROVIDERS: ATTEND Urology
DX: N20.0 Calculus of kidney (principal)
CPT/HCPCS: 50590; 74018; 81025; J0696; J1100; J1885; J2001; J2405; J2704; J3010; J7050

== ENCOUNTER → 2019-01-16 | Outpatient (CLI) | payer OTHER ==
[~2019-01-16] MED LIST changes: -NORMOSOL R SOLN(*) 1000 ML BAG 1,000 ML IV PRN
--- NOTE | 2019-01-16 16:25 | RADIOLOGY IMAGING REPORT ---
FACILITY: [facility] [place] PATIENT NAME: Jerome Sparrow : 1995 MR: [id number] V: [id number] EXAM DATE: ORDERING PHYSICIAN: EKATERINA DE SOUZA TECHNOLOGIST: Location: [facility] - [place] Patient: Jerome Sparrow : 1995 Visit/Account:[id number] Date of Sevice: 01/16/2019 KUB SINGLE VIEW ABDOMEN Given history: kidney stones Additional history: Cystoscopy in November. No complaints COMPARISON: Radiograph 11/27/[address] abdomen pelvis 10/24/2018 which demonstrated a single 3 mm righ t-sided nonobstructing kidney stone. Bowel gas: Bowel gas pattern is within normal limits with scattered air through large and small christopher l. There are two tiny stones seen over the right renal shadow which measured approximately 1.5 mm diamet er. These are in the same location as the previously seen single larger stone. No calcifications se en over the left renal shadow or along the course the ureters. Additional findings: None pertinent. IMPRESSION: Interval fragmentation of the 3 mm right kidney stone Report Dictated By: Rhett Cedeño MD at 01/16/2019 4:18 PM Report E-Signed By: Rhett Cedeño MD at 01/16/2019 4:20 PM WSN:[email or web address]
== END ==
LOC: RAD 15:35
PROVIDERS: ATTEND Urology
DX: N20.0 Calculus of kidney (principal)
CPT/HCPCS: 74018